=== PATIENT | male | born 1970 | race Two or more races ===

== ENCOUNTER 2018-09-03 15:07 | Emergency (ER) | payer MEDICAID ==
[~2018-09-03] VITALS: Ht 185.4 cm; Wt 111.4 kg
[2018-09-03] MEDS ORDERED: ipratropium/albuterol 3ml nebule NEB ONE (15:15)
[2018-09-03] MEDS ORDERED: LORazepam 2 mg/ml vial IV ONE (15:30)
[2018-09-03] MEDS ORDERED: ketorolac tromethamine 15mg/ml inj. IV ONE (15:30)
[2018-09-03 15:40] LABS: BASOPHILS % (AUTO) 0.3 % (0-1); EOSINOPHILS # (AUTO) 0.1 X10'3 (0-0.9); EOSINOPHILS % (AUTO) 0.8 % (0-6); HEMATOCRIT 40.5 % (42.0-52.0); HEMOGLOBIN 13.8 g/dl (14.0-17.9); LYMPHOCYTES # (AUTO) 1.2 X10'3 (1.1-4.8); MEAN CORPUSCULAR HEMOGLOBIN 30.6 PG (27.0-31.0); MEAN CORPUSCULAR HGB CONC 34.2 g/dL (33.0-36.5); MEAN CORPUSCULAR VOLUME 89.5 FL (78-98); MONOCYTES # (AUTO) 0.6 X10'3 (0-0.9); MONOCYTES % (AUTO) 9.4 % (2-12); NEUTROPHILS # (AUTO) 4.3 X10'3 (1.8-7.7); NEUTROPHILS % (AUTO) 69.5 % (42-75); PLATELET COUNT 217 X10'3 (140-440); RED BLOOD COUNT 4.52 X10'6 (4.70-6.10); RED CELL DISTRIBUTION WIDTH 13.9 % (11.5-14.5); WHITE BLOOD COUNT 6.2 X10'3 (4.5-11.0)
[2018-09-03] MEDS ORDERED: ipratropium/albuterol 3ml nebule ONE (15:40)
[2018-09-03 15:48] LABS: ALANINE AMINOTRANSFERASE 34 U/L (12-78); ALBUMIN 3.2 G/DL (3.4-5.0); ALKALINE PHOSPHATASE 61 IU/L (46-116); ANION GAP 6 (8-16); ASPARTATE AMINO TRANSFERASE 19 U/L (10-37); BILIRUBIN,TOTAL 0.4 MG/DL (0.1-1.0); BLOOD UREA NITROGEN 18 MG/DL (7-18); BUN/CREATININE RATIO 10.8 (5.4-32.0); CALCIUM 8.3 MG/DL (8.5-10.1); CHLORIDE 109 MMOL/L (99-107); CREATININE 1.66 MG/DL (0.60-1.10); GLUCOSE 105 MG/DL (70-104); SODIUM 142 MMOL/L (135-145); TOTAL CARBON DIOXIDE 27.4 MMOL/L (24-32); TOTAL PROTEIN 6.4 G/DL (6.4-8.2); eGFR 45 ML/MIN
[2018-09-03 15:50] LABS: PARTIAL THROMBOPLASTIN TIME 28 SECONDS (22-32)
[2018-09-03] MEDS ORDERED: IBUP-1985 PO (16:23)
--- NOTE | 2018-09-03 17:24 | NUR ---
IV REMOVED AND PREPARING FOR DC. UP TO BATHROOM AND CALLED FRIEND FOR RIDE HOME.
[2018-09-03 17:34] VITALS: BP 137/67
== END 2018-09-03 17:41 | disposition home or self-care (01) ==
LOC: ER 15:08
DX: R06.02 Shortness of breath (principal); R07.89 Other chest pain; R11.0 Nausea; F12.90 Cannabis use, unspecified, uncomplicated; F17.200 Nicotine dependence, unspecified, uncomplicated; Z79.899 Other long term (current) drug therapy
CPT/HCPCS: 36415; 71045; 80053; 84484; 85025; 85610; 85730; 93005; 94640; 94760; 96374; 96375; 99284; J1885; J2060

== ENCOUNTER 2018-09-06 05:37 | Emergency (ER) | payer MEDICAID ==
[~2018-09-06] VITALS: Ht 185.4 cm; Wt 111.3 kg
[~2018-09-06 05:37] MED LIST: IBUP-1985 PO
[2018-09-06] MEDS ORDERED: LIDOcaine Viscous 15ml cup PO ONE (06:25)
[2018-09-06] MEDS ORDERED: mag hydrox/Alum hydrox/simeth 30ml oral suspension PO ONE (06:25)
[2018-09-06 07:01] LABS: ALBUMIN 3.5 G/DL (3.4-5.0); ANION GAP 9 (8-16); BLOOD UREA NITROGEN 16 MG/DL (7-18); BUN/CREATININE RATIO 16.8 (5.4-32.0); CALCIUM 8.6 MG/DL (8.5-10.1); CHLORIDE 105 MMOL/L (99-107); CREATININE 0.95 MG/DL (0.60-1.10); GLUCOSE 111 MG/DL (70-104); SODIUM 139 MMOL/L (135-145); TOTAL CARBON DIOXIDE 25.4 MMOL/L (24-32); eGFR 85 ML/MIN
[2018-09-06 07:03] LABS: POTASSIUM 3.9 MMOL/L (3.5-5.1)
[2018-09-06] MEDS ORDERED: iohexol 300mg/ml 100ml inj. ONE (07:49)
[2018-09-06] MEDS ORDERED: penicillin G benzathine 1.2 million unit/2ml syringe IM ONE (07:50)
[2018-09-06] MEDS ORDERED: LIDOcaine 1% w/epiNEPHrine 1:200,000 30ml vial IM ONE (09:00)
[2018-09-06 09:34] VITALS: BP 158/83
[2018-09-06] MEDS ORDERED: dexamethasone sod phosphate 10mg/ml inj IM STA (09:52)
[2018-09-06] MEDS ORDERED: clindamycin 600mg/D5W 50ml 50 ML IV ONE (09:55)
[2018-09-06] MEDS ORDERED: CefTRIAXone/D5W-Rocephin 1gm 50 ML IV ONE (09:55)
[2018-09-06] MEDS ORDERED: CLIN-96 PO (10:05)
== END 2018-09-06 11:20 | disposition home or self-care (01) ==
LOC: ER 05:37
DX: J02.0 Streptococcal pharyngitis (principal); F12.90 Cannabis use, unspecified, uncomplicated; F17.200 Nicotine dependence, unspecified, uncomplicated; Z90.49 Acquired absence of other specified parts of digestive tract
CPT/HCPCS: 36415; 70491; 80048; 87880; 96365; 96368; 96372; 99284; J0561; J0696; J1100; J3490; Q9967

== ENCOUNTER 2018-09-07 15:10 | Emergency (ER) | payer MEDICAID ==
[~2018-09-07] VITALS: Ht 185.4 cm; Wt 111.0 kg
[~2018-09-07 15:10] MED LIST changes: +CLIN-96 PO
[2018-09-07 15:21] VITALS: BP 148/116
[2018-09-07] MEDS ORDERED: dexamethasone sod phosphate 10mg/ml inj PO STA (15:52)
[2018-09-07] MEDS ORDERED: HYDROcodone/acetaminophen 10/325mg tab PO ONE (15:55)
[2018-09-07] MEDS ORDERED: ondansetron 4mg rapidly disintigrating tab PO ONE (15:55)
== END 2018-09-07 16:52 | disposition home or self-care (01) ==
LOC: ER 15:11
DX: J36 Peritonsillar abscess (principal); F12.90 Cannabis use, unspecified, uncomplicated
CPT/HCPCS: 99284; J1100

== ENCOUNTER 2018-09-11 13:34 | Emergency (ER) | payer MEDICAID ==
[~2018-09-11] VITALS: Ht 185.4 cm; Wt 118.2 kg
[2018-09-11 14:15] LABS: BASOPHILS % (AUTO) 0.5 % (0-1); EOSINOPHILS # (AUTO) 0.2 X10'3 (0-0.9); LYMPHOCYTES # (AUTO) 2.1 X10'3 (1.1-4.8); LYMPHOCYTES % (AUTO) 34.4 % (21-51); MEAN CORPUSCULAR HEMOGLOBIN 30.3 PG (27.0-31.0); MEAN CORPUSCULAR HGB CONC 34.2 g/dL (33.0-36.5); MEAN CORPUSCULAR VOLUME 88.7 FL (78-98); MEAN PLATELET VOLUME 9.5 FL (7.4-10.4); MONOCYTES # (AUTO) 0.6 X10'3 (0-0.9); MONOCYTES % (AUTO) 9.4 % (2-12); NEUTROPHILS # (AUTO) 3.2 X10'3 (1.8-7.7); NEUTROPHILS % (AUTO) 52.7 % (42-75); PLATELET COUNT 243 X10'3 (140-440); RED BLOOD COUNT 4.63 X10'6 (4.70-6.10); RED CELL DISTRIBUTION WIDTH 13.4 % (11.5-14.5)
[2018-09-11 14:29] LABS: ALANINE AMINOTRANSFERASE 32 U/L (12-78); ALBUMIN 3.2 G/DL (3.4-5.0); ALBUMIN/GLOBULIN RATIO 0.9 (1.1-1.5); ALKALINE PHOSPHATASE 71 IU/L (46-116); ANION GAP 9 (8-16); ASPARTATE AMINO TRANSFERASE 21 U/L (10-37); BILIRUBIN,TOTAL 0.2 MG/DL (0.1-1.0); BLOOD UREA NITROGEN 17 MG/DL (7-18); BUN/CREATININE RATIO 18.3 (5.4-32.0); CALCIUM 8.9 MG/DL (8.5-10.1); CHLORIDE 106 MMOL/L (99-107); CREATININE 0.93 MG/DL (0.60-1.10); GLUCOSE 122 MG/DL (70-104); POTASSIUM 3.5 MMOL/L (3.5-5.1); SODIUM 139 MMOL/L (135-145); TOTAL CARBON DIOXIDE 24.3 MMOL/L (24-32); TOTAL PROTEIN 6.7 G/DL (6.4-8.2); eGFR 87 ML/MIN
[2018-09-11] MEDS ORDERED: ketorolac trometh. 30mg/ml inj. IM ONE (15:15)
[2018-09-11] MEDS ORDERED: LORazepam 1 MG tablet PO ONE (15:15)
[2018-09-11 16:08] VITALS: BP 136/96
== END 2018-09-11 16:09 | disposition home or self-care (01) ==
LOC: ER 13:35
DX: R07.9 Chest pain, unspecified (principal); F12.90 Cannabis use, unspecified, uncomplicated; Z98.890 Other specified postprocedural states; Z79.2 Long term (current) use of antibiotics; Z79.899 Other long term (current) drug therapy
CPT/HCPCS: 36415; 71046; 80053; 83880; 84484; 85025; 93005; 96372; 99284; J1885

== ENCOUNTER 2018-10-10 17:56 | Emergency (ER) | payer MEDICAID ==
[~2018-10-10] VITALS: Ht 185.4 cm; Wt 118.2 kg
[2018-10-10 18:03] VITALS: BP 121/87
[2018-10-10] MEDS ORDERED: ketorolac tromethamine 15mg/ml inj. IM ONE (18:35)
[2018-10-10] MEDS ORDERED: IBUP-1985 PO (18:38)
== END 2018-10-10 19:00 | disposition home or self-care (01) ==
LOC: ER 17:56
DX: M72.2 Plantar fascial fibromatosis (principal); F12.90 Cannabis use, unspecified, uncomplicated
CPT/HCPCS: 96372; 99283; J1885

== ENCOUNTER 2018-10-20 19:20 | Emergency (ER) | payer MEDICAID ==
[~2018-10-20] VITALS: Ht 185.4 cm; Wt 118.0 kg
[2018-10-20 20:21] LABS: BASOPHILS % (AUTO) 0.5 % (0-1); EOSINOPHILS # (AUTO) 0.1 X10'3 (0-0.9); HEMOGLOBIN 13.7 g/dl (14.0-17.9); LYMPHOCYTES # (AUTO) 1.8 X10'3 (1.1-4.8); LYMPHOCYTES % (AUTO) 25.7 % (21-51); MEAN CORPUSCULAR HEMOGLOBIN 30.5 PG (27.0-31.0); MEAN CORPUSCULAR HGB CONC 34.3 g/dL (33.0-36.5); MEAN CORPUSCULAR VOLUME 89.1 FL (78-98); MEAN PLATELET VOLUME 9.9 FL (7.4-10.4); MONOCYTES # (AUTO) 0.7 X10'3 (0-0.9); MONOCYTES % (AUTO) 10.6 % (2-12); NEUTROPHILS # (AUTO) 4.2 X10'3 (1.8-7.7); NEUTROPHILS % (AUTO) 61.2 % (42-75); PLATELET COUNT 210 X10'3 (140-440); RED BLOOD COUNT 4.49 X10'6 (4.70-6.10); WHITE BLOOD COUNT 6.9 X10'3 (4.5-11.0)
[2018-10-20 20:26] LABS: ALANINE AMINOTRANSFERASE 26 U/L (12-78); ALBUMIN 3.3 G/DL (3.4-5.0); ALBUMIN/GLOBULIN RATIO 0.9 (1.1-1.5); ALKALINE PHOSPHATASE 73 IU/L (46-116); ANION GAP 7 (8-16); ASPARTATE AMINO TRANSFERASE 19 U/L (10-37); BILIRUBIN,TOTAL 0.2 MG/DL (0.1-1.0); BLOOD UREA NITROGEN 18 MG/DL (7-18); BUN/CREATININE RATIO 15.5 (5.4-32.0); CALCIUM 8.5 MG/DL (8.5-10.1); CHLORIDE 107 MMOL/L (99-107); CREATININE 1.16 MG/DL (0.60-1.10); GLUCOSE 104 MG/DL (70-104); POTASSIUM 3.5 MMOL/L (3.5-5.1); SODIUM 139 MMOL/L (135-145); TOTAL CARBON DIOXIDE 24.8 MMOL/L (24-32); TOTAL PROTEIN 6.8 G/DL (6.4-8.2); eGFR 68 ML/MIN
[2018-10-20 20:48] LABS: PARTIAL THROMBOPLASTIN TIME 30 SECONDS (22-32)
[2018-10-20] MEDS ORDERED: ketorolac trometh. 30mg/ml inj. IV ONE (22:00)
[2018-10-20] MEDS ORDERED: acetaminophen 325mg tablet PO ONE (22:00)
[2018-10-20 22:16] VITALS: BP 150/90
== END 2018-10-20 22:21 | disposition home or self-care (01) ==
LOC: ER 19:26
DX: R07.9 Chest pain, unspecified (principal); F12.90 Cannabis use, unspecified, uncomplicated; Z79.2 Long term (current) use of antibiotics; Z79.899 Other long term (current) drug therapy; Z98.890 Other specified postprocedural states
CPT/HCPCS: 36415; 71046; 80053; 84484; 85025; 85610; 85730; 93005; 96374; 99284; J1885